=== PATIENT | female | born 1955 | race Caucasian/White ===

== ENCOUNTER 2020-04-15 14:00 | Emergency (ER) | payer OTHER, MEDICARE, SELFPAY ==
--- NOTE | ~2020-04-15 | XR_ITS ---
EXAMINATION: XR chest 2V EXAM DATE: 04/15/2020 14:27 INDICATION: Mid chest pain, shortness of breath. TECHNIQUE: Frontal and lateral projections of the chest obtained and reviewed. Comparison is made to prior examination from 01/25/2013. FINDINGS: The lungs are clear. There are no pleural effusions. The cardiomediastinal silhouette is within normal limits. There is no pneumothorax suspected. The bones and soft tissues are unremarkab le. Lower cervical fusion hardware. IMPRESSION: No acute cardiopulmonary findings. Reviewed, dictated and finalized at location A.
--- NOTE | 2020-04-15 14:02 | ECG_ITS ---
PROBABLY WANDERING PACEMAKER (SIGNIFICANT BASELINE ARTIFACT) BORDERLINE ST-T WAVE ABNORMALITY- ANTEROLAT/INF LEADS BASELINE ARTIFACT- I, II, III, AVR, AVL, AVF, V1-V6 ABNORMAL ECG Electronically Signed On 04-15-2020 20:32:44 CDT by Hernandez Cope D.O. NO PREVIOUS ECG AVAILABLE FOR COMPARISON [facility]
--- NOTE | 2020-04-15 14:02 | ECG_ITS ---
Measurements Intervals [place] Rate: 53 P: 23 SC: 146 QRS: -3 QRSD: 94 T: -7 QT: 437 QTc: 411 Interpretive Statements PROBABLY ATRIAL FIBRILLATION WITH SLOW VENTRICULAR RESPONSE (BASELINE ARTIFACT) BORDERLINE ST-T WAVE ABNORMALITY- ANTEROLAT/INF LEADS BASELINE ARTIFACT- I, II, III, AVR, AVL, AVF, V1-V6 ABNORMAL ECG Electronically Signed On 04-15-2020 16:18:03 CDT by Hernandez Cope D.O.
[2020-04-15 14:07] VITALS: BP 161/86; PULSE 64; RESP 31; TEMP 36.4; O2SAT 94
--- NOTE | 2020-04-15 14:19 | ED.ANXIETY ---
HPI - Anxiety General Chief Complaint: Anxiety Stated Complaint: it's either a heart attack or an anxiety attack Time Seen by Provider: 04/15/20 14:18 Source: patient and family Mode of arrival: ambulatory Limitations: no limitations History of Present Illness HPI narrative: Patient is a 64-year-old female with a history of anxiety, depression, diabetes, hypertension who presents for evaluation of chest pain. Patient reports onset of chest pain approximately an hour ago. Patient was not doing any specific activity when the chest pain began. Patient reports that the pain was initially over her left chest, severe with radiation to the back. Associated with diaphoresis. Denies nausea, vomiting, reports some shortness of breath. She denies abdominal pain. Patient has a history of panic attacks and anxiety in the past, recently was taken off of Depakote, no other medication changes. Patient denies any recent travel, leg or calf swelling. No history of DVT. She reports she has had a dry cough. She denies any fever or infectious type symptoms. Patient states she had a stress test 2 years ago, believes it was normal. Patient hyperventilating, somewhat hysterical at the time of assessment. Related Data Allergies Allergy/AdvReac Type Severity Reaction Status Date / Time morphine Allergy Verified 08/18/13 15:59 Review of Systems Review of Systems: Narrative: CONSTITUTIONAL: Denies fever, chills, reports feeling diaphoretic EYES: Denies visual changes, redness, or discharge. ENT: Denies rhinorrhea, congestion, sore throat, or otalgia. CARDIOVASCULAR: Reports chest pain RESPIRATORY: Reports cough and shortness of breath GASTROINTESTINAL: Denies abdominal pain, nausea, vomiting, or diarrhea. GENITOURINARY: Denies dysuria or hematuria. SKIN: Denies rash or itching. MUSCULOSKELETAL: Denies back pain, joint pain, or myalgia. NEUROLOGIC: Denies headache, numbness, or weakness. PSYCHIATRIC: Reports anxiety and depression [facility] Past Medical History Medical History (Updated 04/15/20 @ 15:26 by Mansi Gómez MD) Diabetes Hyperlipidemia Hypertension Hypothyroidism Social History Social History (Updated 04/15/20 @ 14:46 by Mansi Gómez MD) Smoking status: Former smoker Tobacco type: cigarettes Living arrangements: with family Gender identity (if verbalized by the patient): Female Exam Narrative: Exam Narrative: GENERAL: Awake, alert, hysterical, tearful, hyperventilating, patient is diaphoretic HEAD: Normocephalic, atraumatic. EYES: PERRLA and EOMI. ENT: Nares clear, no rhinorrhea or epistaxis. Mucous membranes moist. NECK: Supple. CHEST: Tachypneic, no respiratory distress, breathing even and non labored HEART: Regular rate, sinus rhythm ABDOMEN:Non distended, non tender, no epigastric tenderness EXTREMITIES: Normal range of motion. No edema. SKIN: Warm, dry, no rash. NEURO:No focal deficits. Alert and oriented x3 Course Vital Signs Vital signs: Vital Signs Temperature 36.4 C L 04/15/20 14:07 Pulse Rate 64 04/15/20 14:07 Respiratory Rate 31 H 04/15/20 14:07 Blood Pressure 161/86 H 04/15/20 14:07 Pulse Oximetry 94 04/15/20 14:07 Temperature 36.4 C L 04/15/20 14:07 Pulse Rate 64 04/15/20 14:07 Respiratory Rate 31 H 04/15/20 14:07 Blood Pressure 161/86 H 04/15/20 14:07 Pulse Oximetry 94 04/15/20 14:07 MDM - Anxiety MDM Narrative Medical decision making narrative: Patient presented for evaluation of chest pain. At time of initial assessment, ABCs are intact and vital signs are stable. Patient is quite diaphoretic, hyperventilating, nearly hysterical in the room. Patient permitted IV access and she allowed us to give her a full strength aspirin dose. Patient refused nitroglycerin after I counseled the patient on the benefit of the medication and how this could help us differentiate anginal chest pain. Patient again continued to refuse and stated that her chest pain was shaan
[2020-04-15 14:28] LABS: Basophils Absolute Auto 0.1 K/mm3 (0.0-0.1); Basophils Percent Auto 0.7 % (0.2-1.2); Eosinophils Absolute Auto 0.3 K/mm3 (0-0.3); Eosinophils Percent Auto 2.7 % (0-4.4); Hematocrit 41.6 % (37.0-47.0); Hemoglobin 13.9 g/dL (12.0-15.0); Immature Granulocyte Absolute 0.06 K/mm3 (0.00-0.031); Immature Granulocyte Percent A 0.6 % (0-0.5); Lymphocytes Absolute Auto 3.56 K/mm3 (0.9-3.2); Lymphocytes Percent Auto 36.9 % (18.3-44.2); Mean Corpuscular HGB Conc 33.4 g/dl (32-36); Mean Corpuscular Hemoglobin 29.1 pg (26-34); Mean Platelet Volume 9.6 fl (7.4-10.4); Monocytes Absolute Auto 0.7 K/mm3 (0.1-0.6); Monocytes Percent Auto 6.8 % (2.6-8.5); Neutrophils Percent Auto 52.3 % (45.5-73.1); Platelet Count Result 574 k/mm3 (150-375); Red Blood Count 4.78 M/mm3 (4.2-5.4); White Blood Count 9.6 K/mm3 (4.5-10.0)
[2020-04-15 14:39] LABS: Partial Thromboplastin Time 29.7 SECONDS (22.3-36.8); Prothrombin Time 12.5 Seconds (11.1-14.7)
[2020-04-15 14:41] LABS: Anion Gap 21.8 mmol/L (7-16); Blood Urea Nitrogen 14 mg/dL (7-17); Calcium 10.4 mg/dL (8.4-10.2); Carbon Dioxide 19 mmol/L (22-30); Chloride 101 mmol/L (98-107); Estimated Glomerular Filt Rate > 60; Glucose 157 mg/dL (65-105); Potassium 3.8 mmol/L (3.4-5.0); Sodium 138 mmol/L (137-145)
--- NOTE | 2020-04-15 14:41 | ECG_ITS ---
Measurements Intervals [place] Rate: 68 P: 30 NE: 132 QRS: 7 QRSD: 94 T: -67 QT: 348 QTc: 372 Interpretive Statements WANDERING PACEMAKER LOW QRS VOLTAGE IN PRECORDIAL LEADS BORDERLINE ST-T WAVE ABNORMALITY- DIFFUSE LEADS BASELINE ARTIFACT- I, II, AVR, AVL, AVF, V1, V4-V6 ABNORMAL ECG Electronically Signed On 04-15-2020 20:31:36 CDT by Hernandez Cope D.O.
[2020-04-15] MEDS: ASPIRIN 81 MG CHEWABLE TABLET 324 MG PO (14:46)
[2020-04-15] MEDS: ONDANSETRON INJ 4 MG/2 ML VIAL IV PUSH (14:47)
--- NOTE | 2020-04-15 14:50 | PC.NURSE ---
Went into pts room to give medications. Pt states she does not want any nitro pills under her tongue because she will get a headache. Pt then states she wants to leave AMA. Informed Dr. Rich of this and she states she will go into pts room.
[2020-04-15 14:52] LABS: Troponin I < 0.012 ng/mL (0.000-0.034)
[2020-04-15 15:05] LABS: Lipase 99 U/L (23-300)
[2020-04-15 15:16] LABS: NT Pro B Type Natriuretic Pept 193 PG/ML (5-100)
== END 2020-04-15 15:10 | disposition left against medical advice (07) ==
LOC: ANHED 14:29
PROVIDERS: Emergency Medicine; Emergency Provider Emergency Medicine
DX: R07.9 Chest pain, unspecified (principal); E11.9 Type 2 diabetes mellitus without complications; E78.5 Hyperlipidemia, unspecified; I10 Essential (primary) hypertension; E03.9 Hypothyroidism, unspecified; Z87.891 Personal history of nicotine dependence; R94.31 Abnormal electrocardiogram [ECG] [EKG]
CPT/HCPCS: 36415; 71046; 80048; 83690; 83880; 84484; 85025; 85610; 85730; 93005; 96361; 96374; 96375; 99284; A9270; J1200; J2060; J2405; J7030

== ENCOUNTER 2020-04-15 18:28 | Emergency (ER) | payer OTHER, MEDICARE, SELFPAY ==
[2020-04-15 18:57] VITALS: BP 132/88; PULSE 91; RESP 38; TEMP 37.1; O2SAT 94
--- NOTE | 2020-04-15 19:06 | ECG_ITS ---
WANDERING PACEMAKER LOW QRS VOLTAGE IN PRECORDIAL LEADS BORDERLINE ST-T WAVE ABNORMALITY- DIFFUSE LEADS BASELINE ARTIFACT- I, II, AVR, AVL, AVF, V1, V4-V6 ABNORMAL ECG Electronically Signed On 04-15-2020 20:31:36 CDT by Hernandez Cope D.O. COMPARED TO ECG 04/15/2020 14:13:08 WANDERING ATRIAL PACEMAKER NOW PRESENT [facility]
[2020-04-15 19:13] LABS: Glucose Point of Care 175 (65-105)
[2020-04-15 19:16] LABS: Basophils Absolute Auto 0.1 K/mm3 (0.0-0.1); Basophils Percent Auto 0.6 % (0.2-1.2); Eosinophils Absolute Auto 0.1 K/mm3 (0-0.3); Eosinophils Percent Auto 0.6 % (0-4.4); Hematocrit 41.7 % (37.0-47.0); Hemoglobin 14.2 g/dL (12.0-15.0); Immature Granulocyte Absolute 0.12 K/mm3 (0.00-0.031); Immature Granulocyte Percent A 0.8 % (0-0.5); Lymphocytes Absolute Auto 2.37 K/mm3 (0.9-3.2); Lymphocytes Percent Auto 16.3 % (18.3-44.2); Mean Corpuscular HGB Conc 34.1 g/dl (32-36); Mean Corpuscular Hemoglobin 29.1 pg (26-34); Mean Corpuscular Volume 85.5 fl (80-100); Mean Platelet Volume 9.6 fl (7.4-10.4); Monocytes Absolute Auto 0.9 K/mm3 (0.1-0.6); Monocytes Percent Auto 6.2 % (2.6-8.5); Neutrophils Percent Auto 75.5 % (45.5-73.1); Platelet Count Result 584 k/mm3 (150-375); Red Blood Count 4.88 M/mm3 (4.2-5.4); White Blood Count 14.5 K/mm3 (4.5-10.0)
[2020-04-15 19:28] LABS: Blood Urea Nitrogen 17 mg/dL (7-17); Calcium 10.3 mg/dL (8.4-10.2); Carbon Dioxide 19 mmol/L (22-30); Chloride 104 mmol/L (98-107); Estimated CRCL calculation 43 ml/min; Estimated Glomerular Filt Rate 50; Glucose 182 mg/dL (65-105); Sodium 140 mmol/L (137-145)
--- NOTE | 2020-04-15 19:47 | ED.ANXIETY ---
HPI - Anxiety General Chief Complaint: Anxiety Stated Complaint: i was here earlier, cant stop breathing like this Time Seen by Provider: 04/15/20 19:46 Source: patient Mode of arrival: ambulatory Limitations: no limitations History of Present Illness HPI narrative: Patient returns for evaluation of tachypnea, also reporting some chest pain. I saw the patient with her earlier visit to the ER where she then refused additional labs and imaging studies and left AGAINST MEDICAL ADVICE. Patient states she seems that she cannot slow her breathing down. She still reports chest pain and anxiety. Pt states she feels panic. No syncope. No abd pain or flank pain. Related Data Allergies Allergy/AdvReac Type Severity Reaction Status Date / Time morphine Allergy Verified 08/18/13 15:59 Review of Systems Review of Systems: Narrative: CONSTITUTIONAL: Denies fever, chills, or sweats. EYES: Denies visual changes, redness, or discharge. ENT: Denies rhinorrhea, congestion, sore throat, or otalgia. CARDIOVASCULAR: Reports chest pain and palpitations RESPIRATORY: Denies cough, reports shortness of breath GASTROINTESTINAL: Denies abdominal pain, nausea, vomiting, or diarrhea. GENITOURINARY: Denies dysuria or hematuria. SKIN: Denies rash or itching. MUSCULOSKELETAL: Denies back pain, joint pain, or myalgia. NEUROLOGIC: Denies headache, numbness, or weakness. PSYCHIATRIC: Reports anxiety and depression PMF Past Medical History Medical History (Updated 04/15/20 @ 20:50 by Mansi Gómez MD) Diabetes Hyperlipidemia Hypertension Hypothyroidism Social History Social History (Updated 04/15/20 @ 14:46 by Mansi Gómez MD) Smoking status: Former smoker Tobacco type: cigarettes Gender identity (if verbalized by the patient): Female Exam Narrative: Exam Narrative: GENERAL: Awake, rapid, pressured speech, diaphoretic HEAD: Normocephalic, atraumatic. EYES: PERRLA and EOMI. ENT: Nares clear, no rhinorrhea or epistaxis. Mucous membranes moist. NECK: Supple. CHEST: Tachypneic, patient is hyperventilating HEART: Regular rate, sinus rhythm ABDOMEN:Non distended, non tender EXTREMITIES: Normal range of motion. No edema. SKIN: Warm, dry, no rash. NEURO:No focal deficits. Alert and oriented x3 Psych: Patient is very anxious Course Vital Signs Vital signs: Vital Signs Temperature 37.1 C 04/15/20 18:57 Pulse Rate 91 04/15/20 18:57 Respiratory Rate 38 H 04/15/20 18:57 Blood Pressure 132/88 04/15/20 18:57 Pulse Oximetry 94 04/15/20 18:57 Temperature 36.6 C 04/15/20 21:10 Pulse Rate 84 04/15/20 21:10 Respiratory Rate 18 04/15/20 21:10 Blood Pressure 134/79 04/15/20 21:10 Pulse Oximetry 100 04/15/20 21:10 MDM - Anxiety MDM Narrative Medical decision making narrative: Patient returns for recurrent anxiety type symptoms, states she feels as if she cannot slow her breathing down. Patient again refused nitroglycerin. Surety had an aspirin with her earlier visit. Now we are within a 3-hour troponin window and the second troponin that we obtained is unremarkable on the patient. Patient was given Ativan and Benadryl with complete resolution in her anxiety and chest pain. At the time of reassessment she was resting comfortably, no longer hyperventilating, denying any pain. Patient states that her anxiety has increased last week into this week. She is asking for some medication to help control her symptoms at home, and I explained I could do a 3-day course of daily medication, but would not be able to prescribe more than that due to opiate scription limits. I advised her that a psychiatrist or primary care physician would be her best for her out of follow-up. As for the chest pain, given to undetectable troponins, symptoms that are completely resolved with anxiety management, patient refusing nitroglycerin and morphine, I do not really feel that symptoms are anginal at this point. I did consider PE, howev
[2020-04-15] MEDS: diphenhydrAMINE HCl INJ 50 MG/ML VIAL 25 MG IV PUSH (20:03)
[2020-04-15] MEDS: SODIUM CHLORIDE 0.9% IV 1,000 ML 1000 ML (20:05)
[2020-04-15 20:28] LABS: INR 1.1; Prothrombin Time 13.4 Seconds (11.1-14.7)
[2020-04-15 20:41] LABS: Troponin I < 0.012 ng/mL (0.000-0.034)
[2020-04-15 21:10] VITALS: BP 134/79; PULSE 84; RESP 18; TEMP 36.6; O2SAT 100
== END 2020-04-15 21:10 | disposition home or self-care (01) ==
PROVIDERS: Emergency Medicine; Emergency Provider Emergency Medicine
DX: F41.9 Anxiety disorder, unspecified (principal); R07.1 Chest pain on breathing; E11.9 Type 2 diabetes mellitus without complications; E78.5 Hyperlipidemia, unspecified; I10 Essential (primary) hypertension; E03.9 Hypothyroidism, unspecified; Z87.891 Personal history of nicotine dependence
CPT/HCPCS: 36415; 80048; 84484; 85025; 85610; 85730; 93005; 96361; 96374; 96375; 99284; J1200; J2060; J7030